=== PATIENT | female | born 1950 | race Caucasian/White ===

== ENCOUNTER 2017-11-27 21:18 | Emergency (ER) | payer MEDICARE ==
[~2017-11-27] VITALS: Ht 162.6 cm; Wt 70.3 kg
[2017-11-27 21:23] VITALS: BP_SYST 154
[2017-11-27] MEDS ORDERED: NACL 0.9% 1,000 ML IV ONE (21:29)
[2017-11-27] MEDS ORDERED: cloNIDine HCL 0.1 MG TABLET PO ONE (21:45)
[2017-11-27] MEDS ORDERED: ONDANSETRON HCL 4 MG/5 ML UDC PO ONE (21:45)
[2017-11-27 22:18] LABS: BASOPHILS # (AUTO) 0.1 K/uL (0.0-0.2); BASOPHILS % (AUTO) 1.2 % (0.0-2.0); EOSINOPHILS # (AUTO) 0.1 K/uL (0.0-0.4); EOSINOPHILS % (AUTO) 1.1 % (0.0-4.0); HEMATOCRIT 33.8 % (36-48); HEMOGLOBIN 11.8 g/dL (12.0-16.0); LYMPHOCYTES # (AUTO) 2.4 K/uL (1.0-5.5); LYMPHOCYTES % (AUTO) 25.9 % (20.5-51.5); MEAN CORPUSCULAR HEMOGLOBIN 32 pg (27-31); MEAN CORPUSCULAR HGB CONC 35 % (32-36); MEAN CORPUSCULAR VOLUME 92 fL (79.0-98.0); MONOCYTES % (AUTO) 11.4 % (1.7-9.3); NEUTROPHILS # (AUTO) 5.6 K/uL (1.8-7.7); NEUTROPHILS % (AUTO) 60.4 % (40.0-70.0); PLATELET COUNT (AUTO) 313 K/uL (130-430); RED BLOOD CELL COUNT(AUTO) 3.66 MIL/uL (4.2-6.2); RED CELL DISTRIBUTION WIDTH 12.5 % (9.0-15.0); WHITE BLOOD COUNT (AUTO) 9.2 K/uL (4.8-10.8)
[2017-11-27 22:31] LABS: CALCIUM 8.2 mg/dL (8.4-11.0); CREATININE 1.41 mg/dL (0.55-1.30); POTASSIUM 3.6 mmol/L (3.5-5.1)
[2017-11-27 22:35] LABS: INR 1.1 (0.8-1.2); PROTHROMBIN TIME 10.8 SECS (9.5-12.5)
[2017-11-27 22:37] LABS: ALBUMIN 3.3 g/dL (3.4-4.8); TOTAL BILIRUBIN 0.8 mg/dL (0.0-1.0)
[2017-11-27 23:30] LABS: BILIRUBIN,URINE NEGATIVE (NEGATIVE); BLOOD, URINE 1+ (NEGATIVE); CLARITY/URINE CLEAR (CLEAR); COLOR,URINE YELLOW (YELLOW); GLUCOSE,URINE NEGATIVE (NEGATIVE); KETONES,URINE NEGATIVE (NEGATIVE); LEUKOCYTE ESTERASE ,URINE 1+ (NEGATIVE); NITRITE, URINE NEGATIVE (NEGATIVE); PH,URINE 7.5 (5.0-8.0); PROTEIN URINE NEGATIVE (NEGATIVE); UROBILINOGEN,URINE 0.2 (0.2-1.0)
[2017-11-27 23:41] LABS: BACTERIA,URINE FEW /HPF (None Seen); RBC,URINE 0-3 /HPF (0-3); WBC,URINE 0-3 /HPF (0-3)
[2017-11-28 00:42] VITALS: BP_SYST 112
== END 2017-11-28 00:42 | disposition home or self-care (01) ==
LOC: SED 21:18
DX: I10 Essential (primary) hypertension (principal); E87.1 Hypo-osmolality and hyponatremia; N39.0 Urinary tract infection, site not specified; C43.9 Malignant melanoma of skin, unspecified; Z88.6 Allergy status to analgesic agent
CPT/HCPCS: 36415; 71045; 80053; 81000; 82150; 82550; 83690; 84484; 85025; 85610; 85730; 93005; 99285; J7030; Q0162

== ENCOUNTER 2018-01-02 10:01 | Inpatient (IN) | payer MEDICARE ==
[~2018-01-02] VITALS: Ht 154.9 cm; Wt 71.7 kg
[2018-01-02] VITALS (13 sets, daily range): BP systolic 91–106
[2018-01-02 10:41] LABS: CREATININE 0.99 mg/dL (0.55-1.30); POTASSIUM 3.5 mmol/L (3.5-5.1)
[2018-01-02 10:45] LABS: INR 1.6 (0.8-1.2); PROTHROMBIN TIME 16.7 SECS (9.5-12.5)
[2018-01-02 10:52] LABS: HEMATOCRIT 28.3 % (36-48); HEMOGLOBIN 10.1 g/dL (12.0-16.0); MEAN CORPUSCULAR HEMOGLOBIN 35 pg (27-31); MEAN CORPUSCULAR HGB CONC 36 % (32-36); MEAN CORPUSCULAR VOLUME 98 fL (79.0-98.0); PLATELET COUNT (AUTO) 184 K/uL (130-430); RED BLOOD CELL COUNT(AUTO) 2.88 MIL/uL (4.2-6.2); RED CELL DISTRIBUTION WIDTH 20.2 % (9.0-15.0); WHITE BLOOD COUNT (AUTO) 14.2 K/uL (4.8-10.8)
[2018-01-02 10:55] LABS: ALBUMIN 1.8 g/dL (3.4-4.8)
[2018-01-02 11:00] LABS: TOTAL BILIRUBIN 32.7 mg/dL (0.0-1.0)
[2018-01-02] MEDS ORDERED: cefTRIAXone 1 GM in D5W 50 ML IV ONE (11:15)
[2018-01-02] MEDS ORDERED: NACL 0.9% 1,000 ML IV ONE ×2 (11:15→13:00)
[2018-01-02 11:19] LABS: ATYPICAL LYMPHOCYTES % 0 % (0-0); BAND % (MANUAL) 4 % (0-6); BASOPHILS % (MANUAL) 0 % (0-2); EOSINOPHILS % (MANUAL) 0 % (0-7); LYMPHOCYTES % (MANUAL) 12 % (20-46); MONOCYTES % (MANUAL) 5 % (0-11)
[2018-01-02] MEDS ORDERED: cefTRIAXone 1 GM VIAL ONE (11:33)
[2018-01-02] MEDS ORDERED: NACL 0.9% 1,000 ML IV SCH (12:57)
[2018-01-02] MEDS ORDERED: PIPERACILLIN/TAZO 4.5 GM in NS 100 ML IV ONE (13:00)
[2018-01-02] MEDS ORDERED: NOREPINEPHRINE BITARTRATE 4 MG in NS 246 ML IV ONE (13:00)
[2018-01-02] MEDS ORDERED: TRAM2TAB PO (13:05)
[2018-01-02] MEDS ORDERED: CLON-433 PO (13:05)
[2018-01-02] MEDS ORDERED: LOSA50TA3 PO (13:05)
[2018-01-02] MEDS ORDERED: ALPR0.5T PO (13:05)
[2018-01-02] MEDS ORDERED: HYDR25TA4 PO (13:05)
[2018-01-02 13:44] LABS: INR 1.7 (0.8-1.2); PROTHROMBIN TIME 17.9 SECS (9.5-12.5)
[2018-01-02 15:31] LABS: BILIRUBIN,URINE 3+ (NEGATIVE); BLOOD, URINE NEGATIVE (NEGATIVE); CLARITY/URINE CLEAR (CLEAR); COLOR,URINE YELLOW (YELLOW); GLUCOSE,URINE NEGATIVE (NEGATIVE); KETONES,URINE TRACE (NEGATIVE); LEUKOCYTE ESTERASE ,URINE NEGATIVE (NEGATIVE); NITRITE, URINE NEGATIVE (NEGATIVE); PH,URINE 7.5 (5.0-8.0); PROTEIN URINE NEGATIVE (NEGATIVE); UROBILINOGEN,URINE 0.2 (0.2-1.0)
[2018-01-02 15:36] LABS: BACTERIA,URINE FEW /HPF (None Seen); RBC,URINE 0-3 /HPF (0-3); WBC,URINE 0-3 /HPF (0-3)
[2018-01-02 15:38] LABS: CALCIUM 7.5 mg/dL (8.4-11.0); CREATININE 0.59 mg/dL (0.55-1.30); POTASSIUM 4.6 mmol/L (3.5-5.1)
[2018-01-02] MEDS: ALBUTEROL SULFATE 0.083% 2.5 MG/3 ML VIAL.NEB INH PRN (16:53)
[2018-01-02] MEDS: SODIUM BICARBONATE 8.4% JECT 150 MEQ in D5W 1,000 ML IV SCH (17:44)
[2018-01-02] MEDS ORDERED: ONDANSETRON HCL 4 MG/2 ML VIAL IM PRN (20:15)
[2018-01-02] MEDS ORDERED: ONDANSETRON HCL 4 MG/2 ML VIAL ONE (20:30)
[2018-01-02] MEDS ORDERED: NOREPINEPHRINE 4 MG/4 ML VIAL IV ONE (20:37)
[2018-01-02 21:53] LABS: CALCIUM 7.3 mg/dL (8.4-11.0); CREATININE 0.81 mg/dL (0.55-1.30)
[2018-01-02] MEDS ORDERED: KCL 40 mEq in 100 mL (PREMIX) 100 ML IV ONE (23:00)
[2018-01-02] MEDS ORDERED: NOREPINEPHRINE BITARTRATE 4 MG in NS 246 ML IV PRN (23:15)
[2018-01-02] MEDS ORDERED: MAGNESIUM SULFATE 50 ML IV ONE (23:15)
[2018-01-02] MEDS ORDERED: ALPRAZolam 0.25 MG TABLET PO ONE (23:45)
[2018-01-03] VITALS (23 sets, daily range): BP systolic 95–123
[2018-01-03] MEDS ORDERED: ALPRAZolam 0.25 MG TABLET ONE (00:35)
[2018-01-03] MEDS: SODIUM BICARBONATE 8.4% JECT 150 MEQ in D5W 1,000 ML IV SCH ×2 (04:56→16:20)
[2018-01-03 05:31] LABS: HEMATOCRIT 26.5 % (36-48); HEMOGLOBIN 9.7 g/dL (12.0-16.0); MEAN CORPUSCULAR HEMOGLOBIN 36 pg (27-31); MEAN CORPUSCULAR HGB CONC 37 % (32-36); MEAN CORPUSCULAR VOLUME 98 fL (79.0-98.0); PLATELET COUNT (AUTO) 174 K/uL (130-430); RED BLOOD CELL COUNT(AUTO) 2.71 MIL/uL (4.2-6.2); RED CELL DISTRIBUTION WIDTH 20.6 % (9.0-15.0); WHITE BLOOD COUNT (AUTO) 13.8 K/uL (4.8-10.8)
[2018-01-03 05:44] LABS: CALCIUM 7.3 mg/dL (8.4-11.0); CREATININE 0.78 mg/dL (0.55-1.30); POTASSIUM 3.3 mmol/L (3.5-5.1)
[2018-01-03 06:00] LABS: ALBUMIN 1.6 g/dL (3.4-4.8); PHOSPHORUS 2.3 mg/dL (2.7-4.5)
[2018-01-03 06:16] LABS: TOTAL BILIRUBIN 29.1 mg/dL (0.0-1.0)
[2018-01-03 06:48] LABS: BAND % (MANUAL) 1 % (0-6); BASOPHILS % (MANUAL) 0 % (0-2); EOSINOPHILS % (MANUAL) 1 % (0-7); LYMPHOCYTES % (MANUAL) 13 % (20-46); MONOCYTES % (MANUAL) 4 % (0-11)
[2018-01-03] MEDS: PANTOPRAZOLE SODIUM 40 MG/VIAL (PROTONIX) IVP SCH (09:08)
[2018-01-03] MEDS: CEFEPIME 1 GM in D5W 50 ML IV SCH ×2 (12:59→21:09)
[2018-01-03] MEDS: ONDANSETRON HCL 4 MG/2 ML VIAL IVP PRN (17:50)
[2018-01-03] MEDS: ALBUTEROL SULFATE 0.083% 2.5 MG/3 ML VIAL.NEB INH PRN (21:53)
[2018-01-03] MEDS ORDERED: ALPRAZolam 0.25 MG TABLET PO PRN (22:00)
[2018-01-04] VITALS (13 sets, daily range): BP systolic 94–121
[2018-01-04] MEDS ORDERED: ALPRAZolam 0.25 MG TABLET PO PRN (02:00)
[2018-01-04] MEDS ORDERED: LORazepam 2 MG/ML VIAL ONE (02:05)
[2018-01-04] MEDS ORDERED: LORazepam 2 MG/ML VIAL IVP ONE (02:30)
[2018-01-04] MEDS: SODIUM BICARBONATE 8.4% JECT 150 MEQ in D5W 1,000 ML IV SCH (04:01)
[2018-01-04 06:05] LABS: CALCIUM 7.2 mg/dL (8.4-11.0); CREATININE 0.71 mg/dL (0.55-1.30)
[2018-01-04 06:45] LABS: POTASSIUM 2.5 mmol/L (3.5-5.1)
[2018-01-04 08:17] LABS: HEPATITIS A AB, IgM Negative (Negative); HEPATITIS B SURFACE AG Negative (Negative); HEPATITIS C VIRUS AB 0.1 s/co ratio (0.0-0.9)
[2018-01-04] MEDS: PANTOPRAZOLE SODIUM 40 MG/VIAL (PROTONIX) IVP SCH (09:07)
[2018-01-04] MEDS: CEFEPIME 1 GM in D5W 50 ML IV SCH ×2 (09:07→21:55)
[2018-01-04] MEDS: POTASSIUM CHLORIDE 20 MEQ/100 ML IV SCH ×3 (10:55→15:22)
[2018-01-04] MEDS: ALBUTEROL SULFATE 0.083% 2.5 MG/3 ML VIAL.NEB INH PRN (15:33)
[2018-01-04] MEDS: ONDANSETRON HCL 4 MG/2 ML VIAL IVP PRN (16:48)
[2018-01-05] VITALS: BP_SYST 105
[2018-01-05] MEDS ORDERED: LORazepam 2 MG/ML VIAL IVP SCH (02:30)
[2018-01-05] MEDS: ALBUTEROL SULFATE 0.083% 2.5 MG/3 ML VIAL.NEB INH PRN (05:19)
[2018-01-05 08:35] VITALS: BP_SYST 111
[2018-01-05] MEDS: PANTOPRAZOLE SODIUM 40 MG/VIAL (PROTONIX) IVP SCH (08:48)
[2018-01-05] MEDS: CEFEPIME 1 GM in D5W 50 ML IV SCH (08:48)
[2018-01-05 12:10] VITALS: BP_SYST 111
[2018-01-05] MEDS: ONDANSETRON HCL 4 MG/2 ML VIAL IVP PRN (15:15)
[2018-01-05 15:31] VITALS: BP_SYST 111
== END 2018-01-05 16:30 | disposition hospice, home (50) | DRG 871 ==
LOC: SED 10:01 → SIC 12:43 → SMU 01-04 09:51
PROVIDERS: ADMIT Internal Medicine Hospice and Palliative Medicine; ATTEND Internal Medicine Hospice and Palliative Medicine
PROC: 02HV33Z Insertion of Infusion Device into Superior Vena Cava, Percutaneous Approach (ICD-10-PCS; principal; 2018-01-02)
PROC: B548ZZA Ultrasonography of Superior Vena Cava, Guidance (ICD-10-PCS; 2018-01-02)
DX: A41.89 Other specified sepsis (principal); R57.1 Hypovolemic shock; R65.21 Severe sepsis with septic shock; K83.1 Obstruction of bile duct; E87.1 Hypo-osmolality and hyponatremia; K83.0 Cholangitis; J98.11 Atelectasis; C78.7 Secondary malignant neoplasm of liver and intrahepatic bile duct; K72.90 Hepatic failure, unspecified without coma; Z66 Do not resuscitate; I10 Essential (primary) hypertension; M19.90 Unspecified osteoarthritis, unspecified site; Z90.49 Acquired absence of other specified parts of digestive tract; Z88.6 Allergy status to analgesic agent; Z85.05 Personal history of malignant neoplasm of liver; Z85.840 Personal history of malignant neoplasm of eye; Z92.21 Personal history of antineoplastic chemotherapy; Z90.01 Acquired absence of eye
CPT/HCPCS: 36415; 71045; 74181; 76700-TC; 80048; 80053; 81000-TC; 83605; 83735-TC; 83880; 83930-TC; 83935-TC; 84100-TC; 84302-TC; 85007; 85027; 85610-TC; 85730-TC; 86706; 86709; 86803; 87040-TC; 87081; 87340; 94640; 96361; 96374; 99291; C1751; C9113; J0692; J0696; J2060; J2405; J2543; J3475; J3480; J7030; J7050; J7060; J7613